=== PATIENT | female | born 1985 | race Caucasian/White ===

== ENCOUNTER 2018-01-28 22:58 | Emergency (ER) | payer SELFPAY ==
[~2018-01-28] VITALS: Ht 160 cm; Wt 95.7 kg
[2018-01-28 23:01] VITALS: BP 121/72
--- NOTE | 2018-01-28 23:05 | NUR ---
TO BED # 3 VIA W/C, REPORT GIVEN TO CHERIE MAYER.
--- NOTE | 2018-01-28 23:10 | NUR ---
PATIENT PRESENTS TO ED WITH LEFT LOWER ABDOMINAL PAIN X3 HOURS. PT STATES N/V; SKIN IS PINK/WARM/DRY; AAOX4 WITH EVEN AND STEADY GAIT; LUNGS CLEAR BL; HR EVEN AND REGULAR; PT DENIES ANY FEVER, CP, SOB, OR COUGH AT THIS TIME; PATIENT STATES PAIN OF 10/10 AT THIS TIME; VSS; PATIENT POSITIONED FOR COMFORT; HOB ELEVATED; BEDRAILS UP X1; BED DOWN. ER MD MADE AWARE OF PT STATUS.
[2018-01-28] MEDS ORDERED: ONDANSETRON 4 MG ODT PO ONE (23:30)
[2018-01-28] MEDS ORDERED: KETOROLAC 60 MG/2 ML VIAL IM ONE (23:30)
[2018-01-29] MEDS ORDERED: MORPHINE SULFATE 4 MG/ML SYR IM ONE
[2018-01-29] MEDS ORDERED: MORPHINE SULFATE 4 MG/ML SYR ONE (00:01)
[2018-01-29 01:01] VITALS: BP 107/53
--- NOTE | 2018-01-29 01:01 | NUR ---
Patient discharged with v/s stable. Written and verbal after care instructions given and explained. Patient alert, oriented and verbalized understanding of instructions. Ambulatory with steady gait. All questions addressed prior to discharge. ID band removed. Patient advised to follow up with PMD. Rx of MOTRIN 800MG, ZOFRAN 8MG, NORCO 5-325MG given. Patient educated on indication of medication including possible reaction and side effects. Opportunity to ask questions provided and answered.
== END 2018-01-29 01:01 | disposition home or self-care (01) ==
LOC: MED 22:58
DX: R10.32 Left lower quadrant pain (principal); R11.2 Nausea with vomiting, unspecified
CPT/HCPCS: 81002; 81025; 96372; 99284; J1885; J2270; S0119

== ENCOUNTER 2018-09-16 21:09 | Inpatient (IN) | payer OTHER ==
[~2018-09-16] VITALS: Ht 160 cm; Wt 106.1 kg
[2018-09-16 21:22] VITALS: BP 132/74
--- NOTE | 2018-09-16 21:40 | NUR ---
ASSUMED CARE OF PT AT THIS TIME. C/O DIFFUSE ABDOMINAL PAIN W/ INTERMITTENT N/V/D X 5 HOURS. PT DENIES ANY URINARY SYMPTOMS AT THIS TIME. AAOX4 WITH EVEN AND STEADY GAIT; PATIENT STATES PAIN OF 10/10; VSS; PATIENT POSITIONED FOR COMFORT; HOB ELEVATED; BEDRAILS UP X2; BED DOWN. ER MD MADE AWARE OF PT STATUS. WILL CONTINUE TO MONITOR.
--- NOTE | 2018-09-16 21:41 | NUR ---
PT BIB WHEELCHAIR TO ER BED 2
[2018-09-16] MEDS ORDERED: NACL 0.9% 1,000 ML IV SCH (22:14)
[2018-09-16 22:37] LABS: HEMATOCRIT 41.8 % (36-48); HEMOGLOBIN 13.8 g/dL (12.0-16.0); MEAN CORPUSCULAR HEMOGLOBIN 28 pg (27-31); MEAN CORPUSCULAR HGB CONC 33 g/dL (33-37); MEAN CORPUSCULAR VOLUME 85.6 fL (80-94); PLATELET COUNT (AUTO) 262 K/uL (140-450); RED BLOOD CELL COUNT(AUTO) 4.89 MIL/uL (4.20-5.40); RED CELL DISTRIBUTION WIDTH 13.5 % (11.6-13.7)
[2018-09-16 22:45] LABS: ANION GAP 15.6 (8-16); CARBON DIOXIDE 25.4 mmol/L (21-32); CREATININE 0.9 mg/dL (0.6-1.3)
[2018-09-16 22:51] LABS: ALBUMIN 3.8 g/dL (3.4-5.0); TOTAL BILIRUBIN 0.3 mg/dL (0.0-1.0)
[2018-09-16 22:52] LABS: LYMPHOCYTES % (MANUAL) 12 % (20-46); MONOCYTES % (MANUAL) 1 % (5-12)
[2018-09-16] MEDS ORDERED: ONDANSETRON 4 MG/2 ML VIAL IVP ONE (23:00)
[2018-09-16] MEDS ORDERED: KETOROLAC 30 MG/ML VIAL IVP ONE (23:00)
[2018-09-16] MEDS ORDERED: MORPHINE SULFATE 10 MG/ML SYR IVP ONE (23:00)
[2018-09-16 23:14] LABS: APPEARANCE,URINE SL CLOUDY (CLEAR); BILIRUBIN,URINE NEGATIVE (NEGATIVE); BLOOD, URINE TRACE-I (NEGATIVE); COLOR,URINE YELLOW (YELLOW); LEUKOCYTE ESTERASE ,URINE NEGATIVE (NEGATIVE); NITRITE, URINE NEGATIVE (NEGATIVE); PH,URINE 5.5 (5.0-9.0); RBC,URINE 0-5 (RARE) /HPF (0-5); UGLUCOSE NEGATIVE (NEGATIVE); WBC,URINE 0-5 (RARE) /HPF (0-5)
[2018-09-16] MEDS ORDERED: MORPHINE SULFATE 4 MG/ML SYR ONE (23:17)
--- NOTE | 2018-09-16 23:20 | NUR ---
CONSENT FOR CT W/ CONTRAST OBTAINED AT THIS TIME.
--- NOTE | 2018-09-16 23:27 | NUR ---
PT TAKEN TO ULTRASOUND
--- NOTE | 2018-09-17 | NUR ---
PT SENT TO CT WITH TECH AAOX4
--- NOTE | 2018-09-17 00:33 | NUR ---
REPORT GIVEN TO CAL
--- NOTE | 2018-09-17 01:00 | NUR ---
PT RESTING COMFORTABLY. PT AWAITS ADMISSION. NAD. VSS. WILL CONTINUE TO MONITOR.
[2018-09-17] MEDS ORDERED: PIPERACILLIN/TAZOBACTAM 4.5 GM in DEXTROSE 5% 100 ML IV ONE (01:30)
[2018-09-17] MEDS ORDERED: PIPERACILLIN/TAZOBACTAM 2.25 GM VIAL IV ONE (01:40)
[2018-09-17] MEDS ORDERED: MORPHINE SULFATE 4 MG/ML SYR IVP PRN (02:50)
--- NOTE | 2018-09-17 03:10 | NUR ---
Patient will be admitted to [facility]. Admitted to [facility]. Will go to room 108B. Belongings list completed. Report to LEYLA POWELL.
--- NOTE | 2018-09-17 03:15 | NUR ---
PT ARRIVED ON UNIT VIA GURNEY WITH ER NURSE. PT AMBULATED FORM GURNEY AND INTO BED. PT ACCOMPANIED BY MOTHER. PT IS AAOX4, ON RA WITH RESPIRATION EVEN AND UNLABORED, AND NO C/O PAIN AT THIS TIME. IV ACCESS IN L AC 18G, SALINE LOCKED. PT SKIN IS INTACT. MRSA SWAB COLLECTED. VS TAKEN AND WNL. ORIENTED PT TO ROOM AND USE OF CALL LIGHT. BED IS LOCKED, LOW POSITION WITH SIDE RAILS UP X2. BOARD UPDATED. CALL LIGHT IS WITHIN REACH. WILL CONTINUE TO MONITOR PT.
--- NOTE | 2018-09-17 03:20 | NUR ---
SPOKE WITH DR. EDEN. REQUESTING TO OBTAIN SURGERY CONSENT. PLAN IS TO COME SEE PT EARLY THIS MORNING AND PERFORM SURGERY THIS MORNING. PT TO REMAIN NPO.
[2018-09-17 03:30] VITALS: BP 114/66
[2018-09-17] MEDS: LACTATED RINGERS 1,000 ML IV SCH ×3 (03:42→22:47)
--- NOTE | 2018-09-17 03:42 | NUR ---
ORDERED IVF STARTED.
--- NOTE | 2018-09-17 05:30 | NUR ---
PT TAKEN TO SURGERY WITH TWO OR NURSES.
[2018-09-17] MEDS ORDERED: BUPIVACAINE-MPF 0.25% 30 ML VIAL INJ ONE (05:34)
[2018-09-17] MEDS ORDERED: LIDOCAINE 1% 50 ML ONE (05:34)
[2018-09-17] MEDS ORDERED: PROPOFOL 200 MG/20 ML VIAL IV ONE (05:38)
[2018-09-17] MEDS ORDERED: DEXAMETHASONE 4 MG/ML VIAL ONE (05:38)
[2018-09-17] MEDS ORDERED: KETOROLAC 30 MG/ML VIAL ONE (05:38)
[2018-09-17] MEDS ORDERED: ROCURONIUM 50 MG/5 ML VIAL IV ONE (05:38)
[2018-09-17] MEDS ORDERED: DESFLURANE 240 ML BTL INH ONE (05:38)
[2018-09-17] MEDS ORDERED: ONDANSETRON 4 MG/2 ML VIAL ONE (05:38)
[2018-09-17] MEDS ORDERED: SUCCINYLCHOLINE CHLORIDE 200 MG/10 ML VIAL IVP ONE (05:38)
[2018-09-17] MEDS ORDERED: ceFAZolin 1,000 MG VIAL ONE (05:44)
[2018-09-17] MEDS ORDERED: fentaNYL 0.05 MG/ML VIAL ONE (05:45)
[2018-09-17] MEDS ORDERED: HYDROmorphone PFS 2 MG/ML SYR ONE (05:46)
[2018-09-17] MEDS ORDERED: ONDANSETRON 4 MG/2 ML VIAL IVP PRN (06:45)
[2018-09-17] MEDS ORDERED: HYDROmorphone 1 MG/ML AMP IM/IV PRN (06:45)
[2018-09-17] MEDS ORDERED: HYDROmorphone 1 MG/ML AMP IVP PRN (06:45)
--- NOTE | 2018-09-17 07:06 | NUR ---
ENDORSED PT TO DAY SHIFT NURSE FOR CONTINUITY OF CARE. PT IN STABLE CONDITION.
--- NOTE | 2018-09-17 07:24 | NUR ---
RECEIVED REPORT FROM CONTINUITY CLERK. PT IS OFF UNIT IN OR FOR APPENDECTOMY. PT IS AAOX4, ON RA WITH RESPIRATION EVEN AND UNLABORED, AND NO C/O PAIN AT THIS TIME. IV ACCESS IN L AC 18G, SALINE LOCKED. PT SKIN IS INTACT. WILL ASSESS WHEN PT ARRIVES TO UNIT.
[2018-09-17 08:00] VITALS: BP 109/57
--- NOTE | 2018-09-17 08:39 | NUR ---
PATIENT HAS BEEN SCREENED AND CATEGORIZED HIGH NUTRITION RISK. PATIENT WILL BE SEEN WITHIN 1-2 DAYS OF ADMISSION. 09/17/18-09/18/[address]
--- NOTE | 2018-09-17 08:46 | NUR ---
PT RETURNED FROM OR. HAS 3 INCISIONS ON ABD. STITCHES ON EACH INCISION. NO DRAINAGE NOTED. PT DENIES PAIN ASSOCIATED WITH INCISIONS. PT VERY SLEEPY. VITAL SIGNS WITHIN NORMAL LIMITS. WILL CONTINUE TO ASSESS PT. BED IN LOW POSITION, CALL LIGHT WITHIN REACH
[2018-09-17] MEDS ORDERED: PIPERACILLIN/TAZOBACTAM 3.375 GM in DEXTROSE 5% 50 ML IV SCH (09:00)
[2018-09-17] MEDS: PIPER/TAZO 3.375GM/D5W PREMIX 50 ML IV SCH ×2 (10:04→17:25)
--- NOTE | 2018-09-17 13:20 | NUR ---
PT RESTING IN BED. NO COMPLAINTS OF PAIN. WILL CONTINUE TO ROUND FREQUENTLY
--- NOTE | 2018-09-17 13:34 | NUR ---
CM NOTE PER MARIAN OF [facility] (PCP) PH# [phone], THE PATIENT IS SCHEDULED FOR OUTPATIENT FOLLOW UP ON SEPTEMBER 23, 2018 12:40PM AT THE CLINIC AT [address] [place] [address]. I GAVE THE PATIENT A COPY OF HER OUTPATIENT FOLLOW UP SCHEDULE.
--- NOTE | 2018-09-17 14:30 | NUR ---
CM NOTE CHART REVIEW DONE
--- NOTE | 2018-09-17 14:39 | NUR ---
09/17/18 RD INITIAL ASSESSMENT COMPLETED PLEASE REFER TO NUTRITION ASSESSMENT UNDER CARE ACTIVITY FOR ESTIMATED NUTRITIONAL NEEDS. 1. CONTINUE CLEAR LIQUID DIET TOLERATED 2. IF/WHEN PT TOLERATES CLEAR LIQUID DIET ADVANCE TO FULL LIQUID, FOLLOWING REGULAR DIET. 3. RD PROVIDED GENERAL HEALTHY EATING NUTRITION EDUCATION. PT ACCEPTED. 4. RD TO FOLLOW-UP 5-7 DAYS, LOW RISK DONTRELL SZYMANSKI, RD
[2018-09-17 16:00] VITALS: BP 103/47
[2018-09-17] MEDS: ACETAMINOPHEN 325 MG TAB PO PRN (17:24)
--- NOTE | 2018-09-17 19:45 | NUR ---
ENDORSED PT TO [employer]ING FINISHER HELPER FOR CONTINUITY OF CARE. PT IN STABLE CONDITION.
--- NOTE | 2018-09-17 19:46 | NUR ---
RECEIVED BEDSIDE REPORT. PT IS A&OX4. RESPIRATIONS ARE EQUAL AND UNLABORED. PT DENIES SOB OR PAIN AT THIS TIME. PT S/P LAP APPENDECTOMY INCISIONS ARE CLEAN NO DRAINAGE NOTED. HAS IV LAC 20G INFUSING IVF PER ORDERS. MOTHER AND STEP FATHER ARE AT BEDSIDE. PLAN OF CARE WAS DISCUSSED WITH PT. WHITE BOARD UPDATED. SAFETY MEASURES ARE IN PLACE.
--- NOTE | 2018-09-17 21:10 | NUR ---
PT SATES SHE FEELS WARM. TEMP 98.5 REMOVED PTS BLANKET AND WILL CONTINUE TO MONITOR. ALL NEEDS MET AT THIS TIME.
--- NOTE | 2018-09-17 22:00 | NUR ---
PT SLEEPING RESPIRATIONS ARE EQUAL AND UNLABORED. CALL LIGHT WITHIN REACH.
[2018-09-17 23:33] VITALS: BP 115/58
[2018-09-18] MEDS: ACETAMINOPHEN 325 MG TAB PO PRN ×2 (00:03→10:13)
--- NOTE | 2018-09-18 00:03 | NUR ---
PT COMPLAIN OF DISCOMFORT ON IV SITE. CHECKED IV IS PATENT GOOD BLOOD RETURN. PT REQUEST NEW IV. REMOVED IV CATHETER IS INTACT AND INSERTED NEW IV ON LEFT FA 22G. ZOSYN NOW INFUSING PER ORDERS. ALL NEEDS MET AT THIS TIME. WILL CONTINUE TO MONITOR.
[2018-09-18] MEDS: PIPER/TAZO 3.375GM/D5W PREMIX 50 ML IV SCH ×3 (00:16→17:00)
--- NOTE | 2018-09-18 03:24 | NUR ---
PT SLEEPING COMFORTABLY IN BED. RESPIRATIONS ARE EQUAL AND UNLABORED. ALL SAFETY MEASURES ARE IN PLACE.CALL LIGHT WITHIN REACH.
[2018-09-18] MEDS: HYDROcodone/APAP 5/325 MG 1 TAB TAB PO PRN ×2 (05:43→13:27)
--- NOTE | 2018-09-18 05:43 | NUR ---
PT COMPLAIN OF SOME DISCOMFORT IN ABDOMEN PAIN 5/10 NORCO GIVEN. NEW BAG OF IVF NOW INFUSING. CALL LIGHT WITHIN REACH
[2018-09-18] MEDS: LACTATED RINGERS 1,000 ML IV SCH (05:44)
[2018-09-18 06:37] LABS: BASOPHILS % (AUTO) 0.1 % (0.0-2.0); EOSINOPHILS % (AUTO) 0.4 % (0.0-4.0); HEMATOCRIT 35.8 % (36-48); HEMOGLOBIN 11.7 g/dL (12.0-16.0); LYMPHOCYTES # (AUTO) 3.2 K/uL (2.5-16.5); LYMPHOCYTES % (AUTO) 28.5 % (20.5-51.1); MEAN CORPUSCULAR HEMOGLOBIN 28 pg (27-31); MEAN CORPUSCULAR HGB CONC 33 g/dL (33-37); MEAN CORPUSCULAR VOLUME 86.1 fL (80-94); MONOCYTES # (AUTO) 0.5 K/uL (0.8-1.0); MONOCYTES % (AUTO) 4.7 % (1.7-9.3); NEUTROPHILS # (AUTO) 7.4 K/uL (1.8-7.7); NEUTROPHILS % (AUTO) 66.3 % (42.2-75.2); PLATELET COUNT (AUTO) 231 K/uL (140-450); RED BLOOD CELL COUNT(AUTO) 4.16 MIL/uL (4.20-5.40); RED CELL DISTRIBUTION WIDTH 12.9 % (11.6-13.7); WHITE BLOOD COUNT (AUTO) 11.1 K/uL (4.8-10.8)
--- NOTE | 2018-09-18 07:15 | NUR ---
RECEIVED PATIENT REPORT AT BEDSIDE. PATIENT AWAKE, ALERT AND ORIENTED. NO S/S OF DISTRESS. NO C/O PAIN AT THIS TIME. ABD INCISION CLEAN, DRY AND INTACT. WILL CONTINUE TO MONITOR
--- NOTE | 2018-09-18 07:20 | NUR ---
ENDORSED TO DAY SHIFT. PT IS STABLE.
[2018-09-18 08:00] VITALS: BP 137/70
[2018-09-18 08:57] LABS: POTASSIUM 3.6 mmol/L (3.5-5.1)
[2018-09-18 08:58] LABS: CREATININE 0.9 mg/dL (0.6-1.3)
[2018-09-18 09:17] LABS: ANION GAP 13.9 (8-16); CARBON DIOXIDE 25.7 mmol/L (21-32)
[2018-09-18] MEDS ORDERED: ONDANSETRON 4 MG/2 ML VIAL IVP PRN (10:35)
--- NOTE | 2018-09-18 13:45 | NUR ---
PATIENT AMBULATED IN THE UNIT. NO S/S OF DISTRESS NOTED
[2018-09-18] MEDS ORDERED: ACET-2619 PO (15:49)
[2018-09-18 16:31] VITALS: BP 151/93
--- NOTE | 2018-09-18 18:00 | NUR ---
PATIENT DISCHARGED TO HOME. DISCHARGE INSTRUCTIONS GIVEN. PATIENT VERBALIZED UNDERSTANDING. IV LINE DISCONTINUED. PATIENT LEFT WITH ALL HER BELONGINGS AND DISCHARGE PAPERS. PATIENT LEFT IN STABLE CONDITION
== END 2018-09-18 18:00 | disposition home or self-care (01) | DRG 224 ==
LOC: MED 21:09 → MTU 09-17 02:50
PROVIDERS: ADMIT Internal Medicine; ATTEND Internal Medicine
PROC: 0DNW4ZZ Release Peritoneum, Percutaneous Endoscopic Approach (ICD-10-PCS; 2018-09-17)
PROC: 0DTJ4ZZ Resection of Appendix, Percutaneous Endoscopic Approach (ICD-10-PCS; principal; 2018-09-17 05:30)
DX: K35.80 Unspecified acute appendicitis (principal); Z68.41 Body mass index [BMI] 40.0-44.9, adult; E66.01 Morbid (severe) obesity due to excess calories; K43.2 Incisional hernia without obstruction or gangrene; K66.0 Peritoneal adhesions (postprocedural) (postinfection)
CPT/HCPCS: 36415; 76830; 80048; 80053; 81001; 82374; 83690; 84703; 85025; 87081; 96361; 96365; 96375; 99285; J0330; J0690; J1100; J1170; J1885; J2001; J2270; J2405; J2543; J2704; J3010; J3490; J7030; J7060; J7120; Q9967